=== PATIENT | male | born 1965 | race Two or more races ===

== ENCOUNTER 2024-09-03 19:50 | Emergency (ER) | payer MEDICAID ==
[~2024-09-03] VITALS: Ht 165.1 cm; Wt 68.0 kg
[2024-09-03] MEDS ORDERED: ONDANSETRON HCL/PF 4 MG/2 ML VIAL ONE (22:23)
[2024-09-03] MEDS: ONDANSETRON HCL/PF 4 MG/2 ML VIAL IVP ONE (22:35)
[2024-09-03] MEDS: IV NS 0.9% 1,000 ML BAG IV ONE (22:35)
[2024-09-03 22:41] LABS: PLATELET COUNT (AUTO) 198 K/uL (150-450); RED BLOOD CELL COUNT(AUTO) 4.93 MIL/uL (4.5-6.0); RED CELL DISTRIBUTION WIDTH 13.6 % (11.5-15.0); WHITE BLOOD COUNT (AUTO) 12.4 K/uL (4.3-11.0)
[2024-09-03] MEDS ORDERED: MECLIZINE HCL 25 MG TABLET ONE (22:41)
[2024-09-03] MEDS: MECLIZINE HCL 25 MG TABLET PO ONE (22:46)
[2024-09-03 22:49] LABS: CALCIUM, SERUM 8.9 mg/dL (8.5-10.1); CREATININE 1.0 mg/dL (0.6-1.3); SODIUM SERUM 140.0 mmol/L (136-145); UREA NITROGEN, BLOOD 18.0 mg/dL (7-18)
[2024-09-03 22:54] LABS: INR 0.96 (0.91-1.10)
[2024-09-03 23:08] LABS: ASPARTATE AMINOTRANSFERASE 33.0 U/L (15-37); TOTAL PROTEIN, SERUM 7.9 g/dL (6.4-8.2)
[2024-09-03] MEDS ORDERED: MECL-159 PO (23:31)
[2024-09-04 00:07] VITALS: BP 132/79; TEMP 98; O2SAT 98
== END 2024-09-04 00:09 | disposition home or self-care (01) ==
LOC: ER 19:55
DX: R42 Dizziness and giddiness (principal); R11.10 Vomiting, unspecified
CPT/HCPCS: 99284; 96374; 96361; 93005; 85025; 80048; 80076; 36415; 85730; 82962; J8597; J2405; J7030

== ENCOUNTER 2024-12-18 22:22 | Emergency (ER) | payer SELFPAY ==
[~2024-12-18] VITALS: Ht 162.6 cm; Wt 68.0 kg
[~2024-12-18 22:22] MED LIST: MECL-159 PO
[2024-12-18 23:27] VITALS: BP 127/71; TEMP 97.5
[2024-12-18] MEDS ORDERED: MAG HYDROX/AL HYDROX/SIMETH 30 ML UDC ONE (23:34)
[2024-12-18] MEDS ORDERED: LIDOCAINE VISCOUS 2% UD 15 ML UDC ONE (23:34)
[2024-12-18] MEDS: MAG HYDROX/AL HYDROX/SIMETH 30 ML UDC PO ONE (23:36)
[2024-12-18] MEDS: LIDOCAINE VISCOUS 2% UD 15 ML UDC MM ONE (23:36)
[2024-12-18 23:40] VITALS: O2SAT 98
== END 2024-12-18 23:54 | disposition home or self-care (01) ==
LOC: ER 22:26
DX: K29.70 Gastritis, unspecified, without bleeding (principal); Z87.19 Personal history of other diseases of the digestive system